=== PATIENT | female | born 1955 | race Hispanic/Latino ===

== ENCOUNTER 2017-11-17 14:11 | Emergency (ER) | payer OTHER ==
[~2017-11-17 14:11] MED LIST: ATOR20TA65 PO; MONT10TA24 PO
[2017-11-17 14:46] LABS: BASOPHILS % (AUTO) 0.4 % (0.0-5.0); EOSINOPHILS % (AUTO) 3.1 % (0.0-8.0); HEMATOCRIT 40.6 % (36-48); LYMPHOCYTES % (AUTO) 6.1 % (21.0-51.0); MEAN CORPUSCULAR HEMOGLOBIN 30.4 pg (27.0-33.0); MEAN CORPUSCULAR HGB CONC 33.6 g/dL (32.0-36.0); MEAN CORPUSCULAR VOLUME 90.4 fL (79-99); MONOCYTES % (AUTO) 4.3 % (3.0-13.0); NEUTROPHILS % (AUTO) 86.1 % (40.0-77.0); PLATELET COUNT (AUTO) 214 K/uL (130-400); RED BLOOD CELL COUNT(AUTO) 4.49 MIL/uL (4.00-5.50); RED CELL DISTRIBUTION WIDTH 13.2 % (11.0-15.5); WHITE BLOOD COUNT (AUTO) 13.7 K/uL (4.8-10.8)
[2017-11-17 14:56] LABS: CARBON DIOXIDE 28 mmol/L (21-32); CHLORIDE 100 mmol/L (101-111); GLOMERULAR FILTR. RATE CALC 59 mL/min (>60); GLUCOSE,RANDOM 173 mg/dL (70-105); POTASSIUM 3.8 mmol/L (3.5-5.1); SODIUM SERUM 139 mmol/L (136-145); UREA NITROGEN, BLOOD 14 mg/dL (7-18)
[2017-11-17 14:58] LABS: INR 0.97 (0.85-1.15); PARTIAL THROMBOPLASTIN TIME 24.6 SEC (26.3-35.5); PROTHROMBIN TIME 10.2 SEC (9.6-11.6)
[2017-11-17 15:11] LABS: ALANINE AMINOTRANSFERASE 102 U/L (12-78); ALBUMIN 3.8 g/dL (3.5-5.0); ASPARTATE AMINOTRANSFERASE 121 U/L (10-37); B-TYPE NATRIURETIC PEPTIDE 33 pg/mL (0-100); BILIRUBIN,TOTAL 0.5 mg/dL (0.2-1.0); CREATINE KINASE MB < 0.5 ng/mL (0.5-3.6); CREATINE KINASE, TOTAL 47 U/L (21-232); MYOGLOBIN 22 ng/mL (10-92); TOTAL PROTEIN, SERUM 7.7 g/dL (6.0-8.3)
[2017-11-17 16:52] LABS: APPEARANCE,URINE Clear (CLEAR); BILIRUBIN,URINE Negative (NEGATIVE); COLOR,URINE Yellow (YELLOW); GLUCOSE, URINE (UA) Negative (NEGATIVE); KETONES,URINE Negative (NEGATIVE); LEUKOCYTE ESTERASE ,URINE Negative (NEGATIVE); NITRATE,URINE Negative (NEGATIVE); OCCULT BLOOD,URINE Negative (NEGATIVE); PROTEIN,URINE Negative (NEGATIVE)
== END 2017-11-17 19:12 | disposition home or self-care (01) ==
LOC: EDH 14:11
DX: R20.2 Paresthesia of skin (principal); I10 Essential (primary) hypertension; E78.5 Hyperlipidemia, unspecified; Z98.51 Tubal ligation status; Z88.6 Allergy status to analgesic agent
CPT/HCPCS: 36415; 70450; 70544; 70547; 70551; 71045; 76705; 80053; 81003; 82550; 82553; 83874; 83880; 84484; 85025; 85610; 85730; 93005; 94761

== ENCOUNTER → 2020-01-20 | Outpatient (CLI) | payer OTHER, MEDICARE ==
[~2020-01-20] MED LIST changes: -MONT10TA24 PO; +MONT10TA26 PO
== END | disposition home or self-care (01) ==
LOC: RAH 14:08
PROVIDERS: ATTEND Internal Medicine
DX: R59.0 Localized enlarged lymph nodes (principal)
CPT/HCPCS: 76536

== ENCOUNTER 2024-08-21 19:19 | Emergency (ER) | payer MEDICARE ==
[~2024-08-21] VITALS: Ht 162.6 cm; Wt 72.6 kg
[~2024-08-21 19:19] MED LIST changes: -ATOR20TA65 PO; +DOCU-116 PO; +EZET10TA48 PO; +GABA-529 PO; +METH-662 PO; +METO-391 PO; -MONT10TA26 PO; +TRAM50TA4 PO
--- NOTE | 2024-08-21 21:15 | HMCIMG ---
CT HEAD/BRAIN W/O CONTRAST HISTORY: Status post fall COMPARISON: None TECHNIQUE: Multiple sequential axial images of the head were obtained from the base of the skull through vertex. Patient was not given contrast through intravenous route. FINDINGS: The ventricles and extraventricular CSF spaces are dilated consistent with cerebral atrophy. Nonspecific white matter changes seen. There is cavus septum pellucidum. There is no midline shift, mass effect or herniation. No acute intracranial bleed is seen. Visualized portion of the paranasal sinuses are grossly within normal limits. IMPRESSION: 1. No acute intracranial bleed is seen. 2. Atrophy with white matter changes. CT was performed with one or more following dose reduction techniques: automated exposure control, adjustment of the mA and kv according to patient's size, or use of a iterative reconstruction technique.
--- NOTE | 2024-08-21 21:18 | HMCIMG ---
CT CERVICAL SPINE W/O CONTRAST HISTORY: Status post fall COMPARISON: None TECHNIQUE: Multiple sequential axial images of the cervical spine were obtained including post processing sagittal and coronal reconstruction images. Patient was not given contrast through intravenous route. FINDINGS: There are degenerative changes with cervical spine spondylosis. Disc space narrowings are seen at C5-6 and C6-7 levels. There is straightening of normal lordotic cervical curvature which may be related to muscle spasm or positioning. There is no loss of vertebral height. Evaluation for disc and cord pathology is limited with CT study. No evidence of fracture or dislocation is seen. IMPRESSION: 1. No fracture is seen. DJD with cervical spine spondylosis. CT was performed with one or more following dose reduction techniques: automated exposure control, adjustment of the mA and kv according to patient's size, or use of a iterative reconstruction technique.
--- NOTE | 2024-08-21 21:19 | HMCIMG ---
KNEE 4+VWS RT REASON: FALL. COMPARISON: None TECHNIQUE: 3 images of right knee were obtained. FINDINGS: No acute displaced fracture or dislocation is seen. Soft tissue swelling is seen. IMPRESSION: Findings as described above.
--- NOTE | 2024-08-21 21:19 | HMCIMG ---
ELBOW COMP 3+VWS LT HISTORY: Status post fall COMPARISON: None TECHNIQUE: 3 images of left elbow were obtained. FINDINGS: There is no acute displaced fracture or dislocation. There is soft tissue swelling. Nondisplaced fracture cannot be excluded. Degenerative changes are seen. IMPRESSION: 1. Findings as described above.
--- NOTE | 2024-08-21 21:42 | ERN ---
General Chief Complaint: Mechanical Fall Stated Complaint: MECHANICAL FALL Time Seen by MD: 19:31 Time Seen by Midlevel: 19:31 Source: patient History of Present Illness Initial Comments Patient is a 69-year-old female presenting to the emergency department after she sustained a mechanical ground level fall. The patient states she accidentally tripped and fell forward landing on her left side. She states she was able to break the fall with her left arm. Denies any loss of consciousness but does report hitting the left side of her forehead. No other symptoms reported at this time. The patient was able to ambulate after the fall. Allergies: Coded Allergies: aspirin (Unverified Allergy, Unknown, RASH, 11/10/15) Home Meds Active Scripts Methocarbamol (Robaxin) 750 Mg Tab, 500 MG PO TID, #15 TAB 0 Refills Prov:FIORDALIZA ANNE MD 11/05/23 Gabapentin (Gabapentin) 100 Mg Capsule, 100 MG PO TID, #15 CAP 0 Refills Prov:FIORDALIZA ANNE MD 11/05/23 Docusate Sodium (Colace) 100 Mg Capsule, 100 MG PO BID, #30 CAP 0 Refills Prov:FIORADLIZA ANNE MD 11/05/23 Tramadol Hcl (Tramadol HCl) 50 Mg Tablet, 50 MG PO Q6HPRN PRN for PAIN, #28 TAB 0 Refills Prov:FIORDALIZA ANNE MD 11/05/23 Reported Medications Ezetimibe (Ezetimibe) 10 Mg Tablet, 10 MG PO DAILY, TAB 11/01/23 Metoprolol Succinate (Metoprolol Succinate) 50 Mg Tab.er.24h, 50 MG PO DAILY, TAB 11/01/23 Past Medical History Past Medical History: High Cholesterol, Hypertension Past Surgical History: Cholecystectomy ROS Dictation CONSTITUTIONAL: Negative except for HPI HEAD/FACE: Negative except for HPI EENT: Negative except for HPI RESPIRATORY: Negative except for HPI GASTROINTESTINAL/ABDOMINAL: Negative except for HPI GENITOURINARY: Negative except for HPI MUSCULOSKELETAL: Negative except for HPI INTEGUMENTARY: Negative except for HPI NEUROLOGICAL/PSYCH: Negative except for HPI HEMATOLOGIC/LYMPHATIC: Negative except for HPI All Systems Negative, Except as noted above. 13 point review of systems assessed and all negative except for above. Physical Exam Physical Exam Dictation Vital Signs reviewed General Appearance: Alert, oriented x 3, no acute distress, well developed, nourished. Head and Face: non-traumatic. Eyes: PERRL, pink conjunctivas, eyelid no trauma, anterior chamber with arcus senilis. Ears: Pinnas intact and no signs of trauma or erythema ear canals clear and no discharge TM no erythema Nose: No discharge, no bleeding. Oropharynx: Mouth normal, tongue pink, pharynx clear,no erythema, tonsils no exudates, no abscesses noted, mucous membrane moist Neck: Supple, non-tender, no thyromegaly, no masses, no JVD, no bruits Breast:Deferred Chest:No tenderness, no crepitus, no paradoxical movement, no retractions Lungs:Clear, well-ventilated, symmetric, no rales, no wheezing, no rhonchi, no stridor, good breath sounds bilaterally Heart: Regular rate, regular rhythm, no murmur, no gallops Vascular: no peripheral edema, Abdomen: Soft, positive bowel sounds, nondistended, no guarding, nontender, no rebound, no masses no hepatomegaly, no splenomegaly, no Ricardo's sign, no hernias. Rectal: Deferred Genital: Deferred Neurological: Normal speech, motor function intact, sensory function intact Musculoskeletal: Neck nontender, full range of motion, back nontender, full range of motion, Extremities: nontender, full range of motion Skin: Color pink, dry, no turgor, no rash, no lacerations, no abrasions, no contusions. Lymphatic: Deferred MDM MDM: Patient is a 69-year-old female presenting to the emergency department after she sustained a mechanical ground level fall. The patient states she accidentally tripped and fell forward landing on her left side. She states she was able to break the fall with her left arm. Denies any loss of consciousness but does report hitting the left side of her forehead. No other symptoms reported at this time. The patient was able to ambulate after the fall. On physical examination the patient has a GCS of 15. Initial vital signs are stable. There is a contusion/abrasion to the left forehead however her neurological examination is unremarkable. She has a abrasions over her left elbow and right knee. X-ray of the left elbow and right knee do not show any acute fracture or dislocation. A CT scan of the head and neck were ordered which did not reveal any acute abnormality. Patient will be discharged home with supportive management. Strict return precautions were discussed with the patient. All questions have been answered Differential diagnosis: Intracranial bleed, skull fracture, elbow fracture, contusion, dislocation There are no social concerns with this patient. Prescription drug management Prescriptions will include: None Medical management and examination interpretation discussions were had by me with other qualified healthcare professionals as indicated for the patient's care. ED Course Orders Procedure Category Date Status Time Elbow Comp 3+Vws Lt RAD 08/21/24 Resulted 19:46 Knee 4+Vws Rt RAD 08/21/24 Resulted 19:46 Ct Head/Brain W/O CT 08/21/24 Resulted Contrast 20:03 Ct Cervical Spine W/O CT 08/21/24 Resulted Contrast 20:03 Vital Signs Date Time Temp Pulse Resp B/P (MAP) Pulse Ox O2 Delivery O2 Flow Rate FiO2 08/21/24 20:19 98.1 70 16 170/71 96 Room Air* 0 21 08/21/24 19:19 98.1 70 16 170/71 96 [place] [address] IMAGING REPORT Signed PATIENT: RUDY ERAZO MR#: [id number] : 1955 SEX: F AGE: 69 LOCATION: [facility] ORDER 03 STATUS: REG ER REPORT#: [id number] SERVICE 02 REASON: fall ORDERING PHYSICIAN: HERVE WRAY PROCEDURE: HEAD WO - CT HEAD/BRAIN W/O CONTRAST CT HEAD/BRAIN W/O CONTRAST HISTORY: Status post fall COMPARISON: None TECHNIQUE: Multiple sequential axial images of the head were obtained from the base of the skull through vertex. Patient was not given contrast through intravenous route. FINDINGS: The ventricles and extraventricular CSF spaces are dilated consistent with cerebral atrophy. Nonspecific white matter changes seen. There is cavus septum pellucidum. There is no midline shift, mass effect or herniation. No acute intracranial bleed is seen. Visualized portion of the paranasal sinuses are grossly within normal limits. IMPRESSION: 1. No acute intracranial bleed is seen. 2. Atrophy with white matter changes. CT was performed with one or more following dose reduction techniques: automated exposure control, adjustment of the mA and kv according to patient's size, or use of a iterative reconstruction technique. DICTATED BY: DEMETRI PADILLA MD DATE: 08/21/242108 ELECTRONICALLY SIGNED BY: DEMETRI PADILLA MD DATE: 08/21/242114 [place] [id number] [place] [id number] IMAGING REPORT Signed PATIENT: RUDY ERAZO MR#: [id number] : 1955 SEX: F AGE: 69 LOCATION: [facility] ORDER 03 STATUS: REG [facility] REPORT#: [id number] SERVICE 02 REASON: fall ORDERING PHYSICIAN: HERVE WRAY PROCEDURE: C SPIN WO - CT CERVICAL SPINE W/O CONTRAST CT CERVICAL SPINE W/O CONTRAST HISTORY: Status post fall COMPARISON: None TECHNIQUE: Multiple sequential axial images of the cervical spine were obtained including post processing sagittal and coronal reconstruction images. Patient was not given contrast through intravenous route. FINDINGS: There are degenerative changes with cervical spine spondylosis. Disc space narrowings are seen at C5-6 and C6-7 levels. There is straightening of normal lordotic cervical curvature which may be related to muscle spasm or positioning. There is no loss of vertebral height. Evaluation for disc and cord pathology is limited with CT study. No evidence of fracture or dislocation is seen. IMPRESSION: 1. No fracture is seen. DJD with cervical spine spondylosis. CT was performed with one or more following dose reduction techniques: automated exposure control, adjustment of the mA and kv according to patient's size, or use of a iterative reconstruction technique. DICTATED BY: DEMETRI PADILLA MD DATE: 08/21/242111 ELECTRONICALLY SIGNED BY: DEMETRI PADILLA MD DATE: 08/21/242117 [place] [id number] [phone] IMAGING REPORT Signed PATIENT: RUDY ERAZO MR#: [id number] : 1955 SEX: F AGE: 69 LOCATION: ED ORDER 46 STATUS: REG ER [facility] REPORT#: [id number] SERVICE 45 REASON: FALL ORDERING PHYSICIAN: KARL ESTRADA MD PROCEDURE: KNEE 4V RT - KNEE 4+VWS RT KNEE 4+VWS RT REASON: FALL. COMPARISON: None TECHNIQUE: 3 images of right knee were obtained. FINDINGS: No acute displaced fracture or dislocation is seen. Soft tissue swelling is seen. IMPRESSION: Findings as described above. DICTATED BY: DEMETRI PADILLA MD DATE: 08/21/242115 ELECTRONICALLY SIGNED BY: DEMETRI PADILLA MD DATE: 08/21/242118 [place] [address] IMAGING REPORT Signed PATIENT: RUDY ERAZO MR#: [id number] : 1955 SEX: F AGE: 69 LOCATION: [facility] ORDER 46 STATUS: REG ER REPORT#: [id number] SERVICE 45 REASON: FALL ORDERING PHYSICIAN: KARL ESTRADA MD PROCEDURE: ELB3VW LT - ELBOW COMP 3+VWS LT ELBOW COMP 3+VWS LT HISTORY: Status post fall COMPARISON: None TECHNIQUE: 3 images of left elbow were obtained. FINDINGS: There is no acute displaced fracture or dislocation. There is soft tissue swelling. Nondisplaced fracture cannot be excluded. Degenerative changes are seen. IMPRESSION: 1. Findings as described above. DICTATED BY: DEMETRI PADILLA MD DATE: 08/21/242116 ELECTRONICALLY SIGNED BY: DEMETRI PADILLA MD DATE: 08/21/242118 DX & DISP Disposition: Discharge Departure Impression: Primary Impression: Fall Additional Impressions: Scalp contusion, Left elbow contusion, Contusion of right knee Condition: Stable Referrals: RADHA EDGE MD (PCP) Time of Disposition: 21:38 I have reviewed the case, and I agree with, Diagnosis and Plan I performed the substantive portion of the visit. I have reviewed and personally made and approve the management plan that is documented in the note by myself or the GIOVANI. I acknowledge for responsibility for the patient's management plan. HERVE WRAY Aug 21, 2024 21:42
[2024-08-21 21:51] VITALS: BP 154/75; PULSE 65; RESP 16; TEMP 98.1; O2SAT 96
== END 2024-08-21 21:54 | disposition home or self-care (01) ==
LOC: EDH 19:19
DX: S00.03XA Contusion of scalp, initial encounter (principal); S50.02XA Contusion of left elbow, initial encounter; S80.01XA Contusion of right knee, initial encounter; E78.00 Pure hypercholesterolemia, unspecified; I10 Essential (primary) hypertension; Z79.899 Other long term (current) drug therapy; Z88.6 Allergy status to analgesic agent; Z90.49 Acquired absence of other specified parts of digestive tract; W01.0XXA Fall on same level from slipping, tripping and stumbling without subsequent striking against object, initial encounter; Y93.89 Activity, other specified; Y92.89 Other specified places as the place of occurrence of the external cause; Y99.8 Other external cause status
CPT/HCPCS: 70450; 72125; 73080; 73564; 99284